=== PATIENT | female | born 1985 | race Caucasian/White ===

== ENCOUNTER 2017-03-03 09:44 | Emergency (ER) | payer SELFPAY ==
[~2017-03-03] VITALS: Ht 162.5 cm; Wt 77.1 kg
[~2017-03-03 09:44] MED LIST: PHENERGAN25 M1 PO; TRAMADOL HCL50 MG PO; ULTRAM50 MG PO
[2017-03-03 10:25] LABS: BASO % 0.3 % (0.0-1.0); EOS # 0.1 10*3/uL (0.0-0.4); EOS % 1.2 % (1.0-4.0); HEMATOCRIT 43.2 % (37.0-47.0); HEMOGLOBIN 14.4 g/dl (12.0-16.0); LYMPH # 2.1 10*3/uL (1.3-4.4); MEAN CELL VOLUME 86.7 fl (81.0-99.0); MEAN CORPUSCULAR HGB 28.9 pg (27.0-31.0); MEAN CORPUSCULAR HGB CONC 33.3 g/dl (33.0-37.0); MEAN PLATELET VOLUME 10.4 fl (9.6-12.3); MONO # 0.3 10*3/uL (0.1-1.0); MONO % 3.2 % (3.0-9.0); NEUT # 7.1 10*3/uL (2.3-7.9); PLATELET COUNT AUTOMATED 186 10*3/uL (130-400); RED BLOOD COUNT 4.98 10*6/uL (4.10-5.10); RED CELL DISTRI WIDTH 13.7 % (0-14.5); WHITE BLOOD COUNT 9.7 10*3/uL (4.8-10.8)
[2017-03-03 10:29] LABS: BILIRUBIN NEGATIVE (NEGATIVE); BLOOD NEGATIVE (NEGATIVE); CLARITY CLEAR (CLEAR); COLOR STRAW (YELLOW); GLUCOSE NEGATIVE (NEGATIVE); KETONE NEGATIVE (NEGATIVE); LEUKO ESTERASE 1+ (NEGATIVE); NITRITE NEGATIVE (NEGATIVE); PH 6.5 (5.0-9.0); SPECIFIC GRAVITY <= 1.005 (1.005-1.030); UROBILINOGEN 0.2 E.U./dl (0.2-1.0)
[2017-03-03 10:40] LABS: BACTERIA 1+; WBC 21-30 wbc/hpf (0-5)
[2017-03-03 10:41] LABS: ALBUMIN 3.5 gm/dl (3.1-4.5); ALKALINE PHOSPHATASE 83 U/L (45-117); BUN 6 mg/dl (7-24); CHLORIDE 106 mmol/L (98-107); CREATININE 0.65 mg/dL (0.55-1.02); POTASSIUM 4.1 mmol/L (3.5-5.1); SGOT/AST 10 IU/L (3-35); SGPT/ALT 17 U/L (12-78); SODIUM 139 mmol/L (136-145); TOTAL PROTEIN 6.9 gm/dL (6.4-8.2)
[2017-03-03] MEDS ORDERED: MACROBID100 M1 PO (11:02)
[2017-03-03] MEDS ORDERED: PYRIDIUM200 M1 PO (11:02)
== END 2017-03-03 11:22 | disposition home or self-care (01) ==
LOC: ED 09:44
PROVIDERS: Nurse Practitioner Family
DX: N39.0 Urinary tract infection, site not specified (principal); F17.200 Nicotine dependence, unspecified, uncomplicated

== ENCOUNTER 2019-06-23 10:38 | Emergency (ER) | payer OTHER ==
[~2019-06-23] VITALS: Ht 162.5 cm; Wt 79.4 kg
[~2019-06-23 10:38] MED LIST changes: +MACROBID100 M1 PO; +PYRIDIUM200 M1 PO
== END 2019-06-23 13:43 | disposition left against medical advice (07) ==
LOC: ED 10:38
DX: M25.531 Pain in right wrist (principal); R20.0 Anesthesia of skin; R20.2 Paresthesia of skin; X58.XXXA Exposure to other specified factors, initial encounter; Y93.89 Activity, other specified; Y92.89 Other specified places as the place of occurrence of the external cause; Y99.8 Other external cause status

== ENCOUNTER 2020-01-08 09:35 | Emergency (ER) | payer OTHER ==
[~2020-01-08] VITALS: Ht 162.5 cm; Wt 83.9 kg
== END 2020-01-08 11:44 | disposition home or self-care (01) ==
LOC: ED 09:35
DX: S60.031A Contusion of right middle finger without damage to nail, initial encounter (principal); W23.0XXA Caught, crushed, jammed, or pinched between moving objects, initial encounter; Y93.89 Activity, other specified; Y92.89 Other specified places as the place of occurrence of the external cause; Y99.8 Other external cause status

== ENCOUNTER 2021-11-25 06:17 | Emergency (ER) | payer OTHER ==
[~2021-11-25] VITALS: Wt 79.8 kg
[2021-11-25] MEDS ORDERED: AUGMENTIN 875-875 MG PO (06:48)
== END 2021-11-25 07:00 | disposition home or self-care (01) ==
LOC: ED 06:17
DX: J32.8 Other chronic sinusitis (principal); H66.93 Otitis media, unspecified, bilateral; F17.200 Nicotine dependence, unspecified, uncomplicated

== ENCOUNTER 2022-06-30 23:55 | Emergency (ER) | payer OTHER ==
[~2022-06-30] VITALS: Ht 162.5 cm; Wt 74.8 kg
[~2022-06-30 23:55] MED LIST changes: +AUGMENTIN 875-875 MG PO
== END 2022-07-01 00:10 | disposition home or self-care (01) ==
LOC: ED 23:55
DX: H60.92 Unspecified otitis externa, left ear (principal)

== ENCOUNTER 2023-01-26 16:10 | Emergency (ER) | payer OTHER ==
[~2023-01-26] VITALS: Ht 162.5 cm; Wt 74.8 kg
== END 2023-01-26 19:40 | disposition home or self-care (01) ==
LOC: ED 16:10
DX: S90.111A Contusion of right great toe without damage to nail, initial encounter (principal); X58.XXXA Exposure to other specified factors, initial encounter; Y93.89 Activity, other specified; Y92.89 Other specified places as the place of occurrence of the external cause; Y99.8 Other external cause status

== ENCOUNTER 2023-04-08 22:47 | Emergency (ER) | payer OTHER ==
[~2023-04-08] VITALS: Ht 162.5 cm; Wt 72.6 kg
[2023-04-08 23:33] LABS: BASO % 0.5 % (0.0-1.0); EOS # 0.4 10*3/uL (0.0-0.4); EOS % 6.6 % (1.0-4.0); HEMATOCRIT 40.6 % (37.0-47.0); LYMPH # 1.4 10*3/uL (1.3-4.4); LYMPH % 25.1 % (27.0-41.0); MEAN CELL VOLUME 88.5 fl (81.0-99.0); MEAN CORPUSCULAR HGB 30.5 pg (27.0-31.0); MEAN CORPUSCULAR HGB CONC 34.5 g/dl (33.0-37.0); MEAN PLATELET VOLUME 10.1 fl (9.6-12.3); MONO # 0.3 10*3/uL (0.1-1.0); MONO % 5.2 % (3.0-9.0); NEUT # 3.6 10*3/uL (2.3-7.9); NEUT % 62.4 % (47.0-73.0); PLATELET COUNT AUTOMATED 187 10*3/uL (130-400); RED BLOOD COUNT 4.59 10*6/uL (4.10-5.10); RED CELL DISTRI WIDTH 13.4 % (0-14.5); WHITE BLOOD COUNT 5.7 10*3/uL (4.8-10.8)
[2023-04-08 23:46] LABS: ACT PARTIAL THROMBO TIME 28.7 SECONDS (20.0-32.1); INTERNATIONAL NORM RATIO 1.2 (2.0-3.5)
[2023-04-08 23:54] LABS: ALKALINE PHOSPHATASE 92 U/L (46-116); CHLORIDE 107 mmol/L (98-107); LIPASE 20 U/L (12-53); POTASSIUM 2.7 mmol/L (3.4-5.1); SGPT/ALT 8 U/L (5-49); TOTAL PROTEIN 6.6 gm/dL (6.0-8.0)
[2023-04-09 00:03] LABS: BUN < 5 mg/dl (9-23)
[2023-04-09] MEDS ORDERED: OMNICEF300 MG PO (01:28)
== END 2023-04-09 01:29 | disposition home or self-care (01) ==
LOC: ED 22:47
PROVIDERS: Internal Medicine
DX: R11.10 Vomiting, unspecified (principal); T36.95XA Adverse effect of unspecified systemic antibiotic, initial encounter; Y92.89 Other specified places as the place of occurrence of the external cause